=== PATIENT | female | born 1990 | race Hispanic/Latino ===

== ENCOUNTER 2017-04-14 06:08 | Emergency (ER) | payer BC ==
[2017-04-14] MEDS ORDERED: HYDROcodone/Acetaminophen 10/325 mg Tablet ONE (06:40)
[2017-04-14] MEDS ORDERED: AMOXicillin 250 MG CAP ONE (06:41)
[2017-04-14] MEDS ORDERED: Naproxen 500 MG TAB ONE (06:41)
[2017-04-14] MEDS ORDERED: Sulfameth/Trimethoprim DS 800-160mg TAB ONE (06:41)
[2017-04-14] MEDS ORDERED: Ondansetron HCl/PF 4 MG/2 ML Vial ONE (06:41)
[2017-04-14] MEDS ORDERED: Ondansetron ODT 4 MG TAB ONE (06:42)
== END 2017-04-14 07:00 | disposition home or self-care (01) ==
LOC: MADERS 06:08
DX: K80.70 Calculus of gallbladder and bile duct without cholecystitis without obstruction (principal); E66.9 Obesity, unspecified; F17.210 Nicotine dependence, cigarettes, uncomplicated
CPT/HCPCS: 99283; J2405; Q0162

== ENCOUNTER 2017-11-15 20:51 | Emergency (ER) | payer BC ==
[2017-11-15 21:38] LABS: Bilirubin Negative (Negative); Blood, Urine Trace (Negative); Clarity Cloudy (Clear); Glucose, Urine (Dipstick) Negative (Negative); Leukocyte Small (Negative); Nitrite Negative (Negative); Protein, Urine (Dipstick) Negative (Neg-Trace); Urobilinogen 0.2 mg/dL (0.2-1.0)
[2017-11-15 21:40] LABS: Pregnancy Test - Urine (BHCG) Negative (Negative); Pregu Control Background? CLEAR/WHITE (CLR/WHITE); Pregu Control Bar Appear? YES (CONTROL BAR)
[2017-11-15 21:41] LABS: Bacteria/HPF 3+ HPF (None Seen); Renal Epithelial 0-3 HPF (0-3); WBC/HPF 21-50 HPF (0-3)
[2017-11-15] MEDS ORDERED: HYDROcodone/Acetaminophen 10/325 mg Tablet ONE (21:55)
[2017-11-15] MEDS ORDERED: Sulfameth/Trimethoprim DS 800-160mg TAB ONE (21:56)
[2017-11-15] MEDS ORDERED: Phenazopyridine HCl 97.5 MG TABLET ONE (21:56)
[2017-11-15] MEDS ORDERED: Naproxen 500 MG TAB ONE (21:56)
== END 2017-11-15 22:00 | disposition home or self-care (01) ==
LOC: MADERS 20:51
DX: N39.0 Urinary tract infection, site not specified (principal); F17.210 Nicotine dependence, cigarettes, uncomplicated
CPT/HCPCS: 81001; 81025; 87086; 99283

== ENCOUNTER 2020-11-11 17:55 | Emergency (ER) | payer OTHER, SELFPAY ==
[2020-11-11] MEDS ORDERED: Ibuprofen 800 MG TAB ONE (19:06)
[2020-11-11] MEDS ORDERED: HYDROcodone/Acetaminophen 10/325 mg Tablet ONE (20:00)
[2020-11-12 15:53] LABS: SARS-CoV-2 PCR by NAA Not Detected (NotDetected)
== END 2020-11-11 20:15 | disposition home or self-care (01) ==
LOC: MADERS 17:55
DX: B34.9 Viral infection, unspecified (principal); F17.210 Nicotine dependence, cigarettes, uncomplicated; Z20.822 Contact with and (suspected) exposure to COVID-19
CPT/HCPCS: 71045; 87635; 87804; U0003; U0005

== ENCOUNTER 2020-11-12 19:44 | Emergency (ER) | payer OTHER, SELFPAY ==
[2020-11-12] MEDS ORDERED: Prochlorperazine 10 MG/2 ML VIAL ONE (20:26)
[2020-11-12] MEDS ORDERED: Dexamethasone 10 MG/ML VIAL ONE (20:26)
[2020-11-12] MEDS ORDERED: diphenhydrAMINE 50 MG/ML VIAL ONE (20:26)
== END 2020-11-12 21:03 | disposition home or self-care (01) ==
LOC: MADERS 19:44
DX: B34.9 Viral infection, unspecified (principal); R11.2 Nausea with vomiting, unspecified; Z20.822 Contact with and (suspected) exposure to COVID-19
CPT/HCPCS: 96372; 99283; J0780; J1100; J1200

== ENCOUNTER 2022-11-19 16:17 | Emergency (ER) | payer BC, OTHER, SELFPAY | END 2022-11-19 18:12 | disposition home or self-care (01) | LOC: MADERS 16:17 | DX: S83.92XA Sprain of unspecified site of left knee, initial encounter (principal); F17.200 Nicotine dependence, unspecified, uncomplicated; X50.1XXA Overexertion from prolonged static or awkward postures, initial encounter ==

== ENCOUNTER 2023-09-06 18:24 | Emergency (ER) | payer SELFPAY | END 2023-09-06 19:38 | disposition home or self-care (01) | LOC: MADERS 18:24 | DX: J02.9 Acute pharyngitis, unspecified (principal); R09.81 Nasal congestion | CPT/HCPCS: 87804; 99283 ==

== ENCOUNTER 2024-05-09 19:16 | Emergency (ER) | payer SELFPAY | END 2024-05-09 20:09 | disposition home or self-care (01) | LOC: MADERS 19:16 | DX: R21 Rash and other nonspecific skin eruption (principal); F17.200 Nicotine dependence, unspecified, uncomplicated | CPT/HCPCS: 99282 ==